=== PATIENT | male | born 1965 | race Hispanic/Latino ===

== ENCOUNTER 2017-10-05 22:24 | Emergency (ER) | payer OTHER, SELFPAY ==
[2017-10-06] MEDS ORDERED: HYDROCODONE/APAP 10/325 TAB ONE (00:24)
--- NOTE | 2017-10-06 00:55 | EDPHYS ---
Physician Documentation [facility] Name: King Haywood Age: 52 yrs Sex: Male : 1965 Arrival Date: 10/05/2017 Time: 22:28 Bed 25 Private MD: Benjmain Martell B ED Physician José Antonio Sargent HPI: 10/05 22:53 This 52 yrs old Male presents to ER via Ambulatory with complaints of Thumb jmm Injury. 22:53 The patient or guardian reports injury, pain. The complaints affect the right side jmm which is dominant, . Onset: The symptoms/episode began/occurred acutely, just prior to arrival. Patient complains of pain and swelling to the right hand after it got in a saddle. . Historical: - Allergies: 22:47 No Known Allergies; kr2 - Home Meds: 22:47 None [Active]; kr2 - PMHx: 22:47 None; kr2 - PSHx: 22:47 None; kr2 - Immunization history:: Adult Immunizations up to date. - Social history:: Smoking status: Patient/guardian denies using tobacco. - Ebola Screening: : No symptoms or risks identified at this time. ROS: 22:53 Constitutional: Negative for fever, chills, and weight loss, Cardiovascular: Negative jmm for chest pain, palpitations, and edema, Respiratory: Negative for shortness of breath, cough, wheezing, and pleuritic chest pain, Abdomen/GI: Negative for abdominal pain, nausea, vomiting, diarrhea, and constipation, Back: Negative for injury and pain, : Negative for injury, bleeding, discharge, and swelling. 22:53 Neuro: Negative for headache, weakness, numbness, tingling, and seizure, Psych: Negative for depression, anxiety, suicide ideation, homicidal ideation, and hallucinations. 22:53 MS/extremity: Positive for pain. 22:53 Skin: Positive for abrasion. 22:53 All other systems are negative. Exam: 22:53 Constitutional: This is a well developed, well nourished patient who is awake, alert, jmm and in no acute distress. Chest/axilla: Normal chest wall appearance and motion. Nontender with no deformity. No lesions are appreciated. Cardiovascular: Regular rate and rhythm. No gallops, murmurs, or rubs. Full/Equal distal pulses. Respiratory: Lungs have equal breath sounds bilaterally, clear to auscultation. No rales, rhonchi or wheezes noted. No increased work of breathing, no retractions or nasal flaring. 22:53 Musculoskeletal/extremity: swelling noted to the right 1st, 2nd, 3rd, and 4th fingers. . 22:53 Skin: Appearance: Color: normal in color. 22:53 Neuro: Orientation: is normal, Mentation: is normal, Memory: is normal. 22:53 Psych: Behavior/mood is pleasant, cooperative. Vital Signs: 22:43 BP 127 / 81; Pulse 67; Resp 17; Temp 98.8; Pulse Ox 97% on R/A; kr2 10/06 01:07 BP 134 / 80; Pulse 65; Resp 17; Pulse Ox 98% ; kr2 Procedures: 00:54 Splinting: Splint applied to dorsal aspect of distal phalanx of right thumb, dorsal jmm aspect of proximal phalanx of right thumb, palmar aspect of distal phalanx of right thumb and palmar aspect of proximal phalanx of right thumb using thumb spica. applied by tech. Examined by me, post splint application: neurovascular intact, 2+ distal pulses palpable, brisk capillary refill noted, Patient tolerated well. MDM: 10/05 00:50 ED course: Abrasion noted ot the proximal right phalanx. This does not appear to [facility] communicate the with fracture. family advised to apply neosporin and given strict return precautions for wound infection. . 22:51 Patient medically screened. [facility] 10/06 00:54 Data reviewed: vital signs, nurses notes, radiologic studies, plain films. Counseling: kevin I had a detailed discussion with the patient and/or guardian regarding: the historical points, exam findings, and any diagnostic results supporting the discharge/admit diagnosis, radiology results, the need for outpatient follow up, to return to the emergency department if symptoms worsen or persist or if there are any questions or concerns that arise at home. 10/05 22:51 Order name: Hand Right 3 View XRAY [facility] 10/06 00:21 Order name: Thumb Spica Splint; Complete Time: 01:08 kevin Administered Medications: 00:25 Drug: [facility] 10 mg-325 mg 1 tabs Route: PO; ao 01:06 Follow up: Response: No adverse reaction kr2 Disposition: 10/06/17 00:55 Discharged to Home. Impression: Fracture of thumb. - Condition is Stable. - Discharge Instructions: Thumb Fracture. - Prescriptions for Tylenol- Codeine #3 300-30 mg Oral Tablet - take 2 tablets by ORAL route every 6 hours As needed; 20 tablet. - Medication Reconciliation Form, Thank You Letter, Antibiotic Education, Prescription Opioid Use form. - Follow up: Damian uKmar MD; When: 2 - 3 days; Reason: Continuance of care. Follow up: Santos Meraz MD; When: 2 - 3 days; Reason: Continuance of care. - Notes: Please follow up with hand surgery for further evaluation. Please return to the ED if you develop increased pain, fever, numbness or any other concerning symptoms. Addendum: 10/07/2017 09:58 Co-signature as Attending Physician, José Antonio Sargent MD I agree with the assessment and c bravo plan of care. Signatures: Dispatcher [employer] EDMS José Antonio Sargent MD MD cha Mickail, Joel, PA PA jmm Ortiz, Alex, RN RN Bharti Auguste RN RN kr2 Corrections: (The following items were deleted from the chart) 10/06 01:09 00:55 10/06/2017 00:55 Discharged to Home. Impression: Fracture of thumb. Condition is kr2 Stable. Forms are Medication Reconciliation Form, Thank You Letter, Antibiotic Education, Prescription Opioid Use. Follow up: Damian Kumar; When: 2 - 3 days; Reason: Continuance of care. Follow up: Santos Meraz; When: 2 - 3 days; Reason: Continuance of care. kevin
--- NOTE | 2017-10-06 00:55 | ER ---
Nurse's Notes [facility] Name: King Haywood Age: 52 yrs Sex: Male : 1965 Arrival Date: 10/05/2017 Time: 22:28 Bed 25 Private MD: Benjamin Martell B Diagnosis: Fracture of thumb Presentation: 10/05 22:41 Presenting complaint: Patient states: his thumb was caught between the rope and saddle kr2 horn when roping a steer. Transition of care: patient was not received from another setting of care. Onset of symptoms was October 05, 2017 at 21:00. Risk Assessment: Do you want to hurt yourself or someone else? Patient reports no desire to harm self or others. Initial Sepsis Screen: Does the patient meet any 2 criteria? No. Patient's initial sepsis screen is negative. Does the patient have a suspected source of infection? No. Patient's initial sepsis screen is negative. Care prior to arrival: None. 22:41 Method Of Arrival: Ambulatory kr 22:41 Acuity: CALOS 4 kr2 Triage Assessment: 22:44 General: Appears in no apparent distress. comfortable, well groomed, well developed, kr2 well nourished, Behavior is calm, cooperative, appropriate for age. Pain: Complains of pain in thumb of right hand Pain does not radiate. Pain currently is 3 out of 10 on a pain scale. Quality of pain is described as tingling, throbbing, Pain began 2 hours ago. Is continuous, Alleviated by nothing. Aggravated by repositioning. Musculoskeletal: Circulation, motion, and sensation intact. Range of motion: limited in thumb of right hand Swelling present in thumb of right hand. Injury Description: thumb of right hand was caught between the saddle horn and rope when roping a steer resulting in pain and swelling. Historical: - Allergies: 22:47 No Known Allergies; kr2 - Home Meds: 22:47 None [Active]; kr2 - PMHx: 22:47 None; kr2 - PSHx: 22:47 None; kr2 - Immunization history:: Adult Immunizations up to date. - Social history:: Smoking status: Patient/guardian denies using tobacco. - Ebola Screening: : No symptoms or risks identified at this time. Screenin:43 Abuse screen: Denies threats or abuse. Denies injuries from another. Nutritional kr2 screening: No deficits noted. Tuberculosis screening: No symptoms or risk factors identified. Fall Risk None identified. Assessment: 22:45 Reassessment: Patient appears in no apparent distress at this time. Patient and/or kr2 family updated on plan of care and expected duration. Pain level reassessed. Patient is alert, oriented x 3, equal unlabored respirations, skin warm/dry/pink. 23:45 Reassessment: Patient appears in no apparent distress at this time. Patient and/or kr2 family updated on plan of care and expected duration. Pain level reassessed. Patient is alert, oriented x 3, equal unlabored respirations, skin warm/dry/pink. 10/06 00:45 Reassessment: Patient appears in no apparent distress at this time. Patient and/or kr2 family updated on plan of care and expected duration. Pain level reassessed. Patient is alert, oriented x 3, equal unlabored respirations, skin warm/dry/pink. Splint applied by emergency medical tech. Patient tolerated well Patient states feeling better. Vital Signs: 10/05 22:43 BP 127 / 81; Pulse 67; Resp 17; Temp 98.8; Pulse Ox 97% on R/A; kr2 10/06 01:07 BP 134 / 80; Pulse 65; Resp 17; Pulse Ox 98% ; kr2 ED Course: 10/05 22:28 Patient arrived in ED. es 22:28 Benjamin Martell MD is Private Physician. es 22:39 [facility] 22:40 José Antonio Sargent MD is Attending Physician. [facility] 22:41 Bharti Perez, JUAN is Primary Nurse. kr2 22:43 Triage completed. kr2 22:46 Arm band placed on. kr2 22:47 Patient has correct armband on for positive identification. Bed in low position. Call kr2 light in reach. Side rails up X 1. Pulse ox on. NIBP on. Door closed. Head of bed elevated. 23:23 X-ray completed. Portable x-ray completed in exam room. Patient tolerated procedure la2 well. 23:24 Hand Right 3 View XRAY In Process Unspecified. EDMS 10/06 00:55 Damian Kumar MD is Referral Physician. [facility] 00:55 Santos Meraz MD is Referral Physician. [facility] 01:06 No provider procedures requiring assistance completed. Patient did not have IV access kr2 during this emergency room visit. Administered Medications: 00:25 Drug: [place] 10 mg-325 mg 1 tabs Route: PO; ao 01:06 Follow up: Response: No adverse reaction kr2 Outcome: 00:55 Discharge ordered by . kevin 01:06 Discharged to home ambulatory, with family. kr2 01:06 Condition: good 01:06 Discharge instructions given to patient, family, Instructed on discharge instructions, follow up and referral plans. medication usage, splint care Demonstrated understanding of instructions, follow-up care, medications, splint care, Prescriptions given X 1. 01:09 Patient left the ED. kr2 Signatures: Dispatcher [employer] EDMS Laz Elizondo PA PA jmm Salyer, Edna es Ortiz, Alex, RN RN Trish Wilkinson Karey, RN RN kr2 Corrections: (The following items were deleted from the chart) 01:10/05 22:45 Reassessment: kr2 kr2 10/06 01:08 00:45 Reassessment: Patient appears in no apparent distress at this time. Patient kr2 and/or family updated on plan of care and expected duration. Pain level reassessed. Patient is alert, oriented x 3, equal unlabored respirations, skin warm/dry/pink. Patient states feeling better. kr2 : 01:06 Discharge instructions given to patient, family, Instructed on discharge kr2 instructions, follow up and referral plans. medication usage, Demonstrated understanding of instructions, follow-up care, medications, Prescriptions given X 1, kr2
--- NOTE | 2017-10-06 12:27 | RAD REPORT ---
EXAM DESCRIPTION: RAD - Hand Right 3 View - 10/05/2017 11:24 pm CLINICAL HISTORY: injury Trauma to first digit COMPARISON: No comparisons FINDINGS: Fracture involves the proximal phalanx of the first digit with surrounding soft tissue swe lling. No dislocation or foreign body.
== END 2017-10-06 01:09 | disposition home or self-care (01) ==
LOC: ER 22:24
PROC: 2W3GX1Z Immobilization of Right Thumb using Splint (ICD-10-PCS; principal; 2017-10-06)
DX: S62.501A Fracture of unspecified phalanx of right thumb, initial encounter for closed fracture (principal); X58.XXXA Exposure to other specified factors, initial encounter; Y93.89 Activity, other specified; Y92.9 Unspecified place or not applicable
CPT/HCPCS: 99284

== ENCOUNTER 2020-05-16 11:14 | Day surgery (SDC) | payer OTHER ==
[2020-05-13 16:09] LABS: Absolute Lymphocytes (CBC) 1.8 K/uL (0.7-4.9); Basophils % 0.7 % (0-1.3); Hematocrit 39.7 % (39.6-49.0); Lymphocytes % 25.8 % (15.3-44.8); MPV 8.6 fL (7.6-11.3); RBC Red Blood Cell Count 4.61 M/uL (4.33-5.43)
[2020-05-13 16:24] LABS: Potassium 3.7 mmol/L (3.5-5.1)
--- NOTE | 2020-05-13 17:34 | RAD REPORT ---
EXAM DESCRIPTION: RAD - Chest Pa And Lat (2 Views) - 05/13/2020 5:19 pm CLINICAL HISTORY: preop, pending soft tissue mass removal COMPARISON: January 2011 TECHNIQUE: Frontal and lateral views of the chest were obtained. FINDINGS: The lungs are underinflated. Medial left base parenchymal stranding is believed to be the summation effect of the overlying heart and a lower lung volume. True mass or infiltrate of the lung parenchyma is not suspected. No failure or volume overload. Trachea is midline. Heart size is normal and central vasculature is within normal limits. No pleur al effusion or pneumothorax seen. No acute bony finding noted. No aortic abnormality. IMPRESSION: No acute cardiopulmonary process.
[2020-05-16] MEDS ORDERED: LIDOCAINE 1% MPF 5 ML VIAL ONE (12:41)
[2020-05-16] MEDS ORDERED: MIDAZOLAM HCL 2 MG/2 ML INJ ONE (12:41)
[2020-05-16] MEDS ORDERED: propofoL 200 MG/20 ML VIAL IV ONE (12:41)
[2020-05-16] MEDS ORDERED: FENTANYL CITR 100 MCG/2 ML ONE (12:41)
[2020-05-16] MEDS ORDERED: KETOROLAC 30 MG/ML INJ ONE (13:19)
[2020-05-16] MEDS ORDERED: ONDANSETRON 4 MG/2 ML VIAL ONE (13:20)
--- NOTE | 2020-05-16 13:25 | P.BOP ---
Preoperative diagnosis: infected back subQ mass with abscess Postoperative diagnosis: same Primary procedure: Excision of infected back subQ mass with abscess 6x6 cm Estimated blood loss: <10cc Specimen: mass and pus culture Findings: as above Anesthesia: General Complications: None Transferred to: Recovery Room Condition: Good
[2020-05-16] MEDS ORDERED: CEFAZOLIN/SWI 1gm 1 GM/10 ML SYR ONE (13:55)
[2020-05-16 13:56] VITALS: O2SAT 100
--- NOTE | 2020-05-16 13:56 | DS ---
Diagnosis: Infected back subcutaneous mass. Procedure: Excisional biopsy of infected back subcutaneous mass. Disposition: Home. Wet-to-dry dressing, normal saline daily. Plan: Follow up in my office in 1 week. The will be doing the dressing changes; they feel comf ortable with it. WANDER/FEDERICO Voice ID: [id number] Report ID: [id number]
--- NOTE | 2020-05-16 13:56 | OP ---
Date of Procedure: 05/16/2020 Surgeon: Rigo Thomas MD Preoperative Diagnosis: Infected back subcutaneous mass with abscess and cellulitis. Postoperative Diagnosis: Infected back subcutaneous mass with abscess and cellulitis. Procedure Performed: Excisional biopsy of infected back subcutaneous mass with drainage of an absces s about 6 x 6 cm. Specimen: Mass and pus culture. Findings: The patient had cellulitis of the back area with large infected mass present. This was co mbined with a deep abscess. Anesthesia: General plus local. Indications: This is a case of a male, who comes to us with an infected large back mass. Over the w eekend, he was on antibiotics, got worse. Purulent discharge coming today. Benefits, alternatives, and risks of excisional biopsy fully explained which include, but not limited to infection, bleeding, damage to adjacent structures, anesthesia complication, nonhealing wound, MA, even . He also u nderstands this may not relieve symptoms. He might need more than one surgical intervention. The fa marty and the understood he will require wound care in the form of normal saline. He signed a co nsent. Description Of Procedure: The patient was brought to the operating room, placed in supine position. Anesthesia was done without complication. The patient was placed in lateral decubitus position with proper protection. A time-out was called. The area was prepped and draped in a sterile fashion aft er anesthesia. An incision was made to remove not just the cyst, but necrotic tissue on top of that. When we removed the cyst, we noticed also patient has a deeper abscess. The entire area was about 6 x 6 cm. The area was irrigated. Loculations were explored opened. Hemostasis was obtained. Loca l anesthesia was applied and then the area was packed with wet-to-dry dressing. The patient tolerate d the procedure well. The patient was sent to Recovery in stable condition. WANDER/FEDERICO Voice ID: [id number] Report ID: [id number]
[2020-05-16 14:08] VITALS: BP 125/93; TEMP 97.4
== END 2020-05-16 14:35 | disposition home or self-care (01) ==
LOC: OR 11:14
PROVIDERS: ATTEND Surgery
PROC: 0JB70ZZ Excision of Back Subcutaneous Tissue and Fascia, Open Approach (ICD-10-PCS; principal; 2020-05-16 12:45)
DX: L72.0 Epidermal cyst (principal); L03.312 Cellulitis of back [any part except buttock and flank]; I96 Gangrene, not elsewhere classified; Z20.822 Contact with and (suspected) exposure to COVID-19
CPT/HCPCS: 93005; 87070; 85025; 80048; 36415; 87205; 88304; 87075; 71046; 11402; 11042; U0002; J2704; J2250; J3010; J0690; J2405; 88305